=== PATIENT | female | born 1980 ===

== ENCOUNTER 2020-01-22 09:00 | Emergency (ER) | payer SELFPAY ==
[~2020-01-22] VITALS: Ht 154.9 cm; Wt 54.5 kg
[2020-01-22 09:18] VITALS: BP 147/96; Ht 154.9 cm; Wt 54.5 kg
[2020-01-22] MEDS ORDERED: DICLOFENAC SODI50 MG PO (10:30)
[2020-01-22] MEDS ORDERED: LIORESAL 10 MG10 MG PO (10:30)
== END 2020-01-22 12:37 | disposition home or self-care (01) ==
LOC: D.ER 09:00
DX: S16.1XXA Strain of muscle, fascia and tendon at neck level, initial encounter (principal); S00.03XA Contusion of scalp, initial encounter; F07.81 Postconcussional syndrome; Y04.8XXA Assault by other bodily force, initial encounter; Y93.9 Activity, unspecified; Y92.9 Unspecified place or not applicable; M54.2 Cervicalgia